=== PATIENT | male | born 1975 | race Caucasian/White ===

== ENCOUNTER 2024-06-19 13:53 | Emergency (ER) | payer BC ==
[~2024-06-19] VITALS: Ht 182.9 cm; Wt 81.6 kg
[2024-06-19 14:00] VITALS: BP_SYST 98; PULSE 75; RESP 18; TEMP 98.3; O2SAT 98
[2024-06-19] MEDS: NACL 0.9% 1,000 ML IV ONE (14:49)
[2024-06-19 14:55] LABS: HEMATOCRIT 38.1 % (36-54); HEMOGLOBIN 13.4 g/dL (14.0-18.0); MEAN CORPUSCULAR HEMOGLOBIN 28 pg (27-31); MEAN CORPUSCULAR HGB CONC 35 % (32-36); MEAN CORPUSCULAR VOLUME 80 fL (79.0-98.0); PLATELET COUNT (AUTO) 281 K/uL (130-430); RED BLOOD CELL COUNT(AUTO) 4.77 MIL/uL (4.2-6.2); RED CELL DISTRIBUTION WIDTH 13.9 % (9.0-15.0); WHITE BLOOD COUNT (AUTO) 3.7 K/uL (4.8-10.8)
[2024-06-19 15:21] LABS: ATYPICAL LYMPHOCYTES % 5 % (0-0); BASOPHILS % (MANUAL) 0 % (0-2); EOSINOPHILS % (MANUAL) 6 % (0-7); LYMPHOCYTES % (MANUAL) 27 % (20-46); MONOCYTES % (MANUAL) 8 % (0-11); PLATELET ESTIMATE ADEQUATE (ADEQUATE)
[2024-06-19 15:36] LABS: ANION GAP 9 (5-15); CALCIUM 8.7 mg/dL (8.4-11.0); CARBON DIOXIDE 25 mmol/L (23-29); CHLORIDE 103 mmol/L (98-107); CREATININE 0.82 mg/dL (0.55-1.30); GFR AFRICAN AMERICAN 128 mL/min (>90); GLUCOSE 92 mg/dL (74-106); POTASSIUM 4.2 mmol/L (3.5-5.1); SODIUM SERUM 137 mmol/L (136-145); UREA NITROGEN, BLOOD 14 mg/dL (8-21)
[2024-06-19 15:42] LABS: GFR NON AFRICAN-AMERICAN 106 mL/min (>90)
[2024-06-19 16:55] VITALS: BP_SYST 98; PULSE 75; RESP 18; TEMP 98.3; O2SAT 98
== END 2024-06-19 16:54 | disposition home or self-care (01) ==
LOC: SED 13:53
DX: R00.2 Palpitations (principal); F41.9 Anxiety disorder, unspecified; F15.90 Other stimulant use, unspecified, uncomplicated; F32.A Depression, unspecified
CPT/HCPCS: 99285; 96360; 71045; 85027; 80048; 83880; 85007; 84484; 36415; 93005; J7030